=== PATIENT | male | born 1965 | race Caucasian/White ===

== ENCOUNTER 2024-09-14 21:25 | Emergency (ER) | payer MEDICAID, SELFPAY ==
[2024-09-14 21:26] VITALS: BP 153/101; PULSE 65; RESP 14; TEMP 37.1; O2SAT 98
[2024-09-14 21:40] LABS: Glucose Point of Care 164 mg/dL (70-110)
--- NOTE | 2024-09-14 21:41 | ED_ITS ---
Documented by User: BRENDA Lawrence 09/15/24 00:37 HPI - Altered Mental Status 2 General: Chief Complaint: Altered Mental Status Stated Complaint: AMS Time Seen by Provider: 09/14/24 21:38 History of Present Illness: 59-year-old male patient comes in today for complaints of somnolence. Patient was pulled over by [employer] and was noted to have an outstanding warrant and was taken to [facility] for processing. Patient has been somnolent and dozing off under the custody. Law enforcement brought patient in for evaluation and clearance. Patient denies any chronic medical problems. Patient reports tobacco use. Patient denies alcohol or marijuana use. Patient does endorse methamphetamine use. Patient is very somnolent and has to be awoken several times during interview. Patient denies any falls or injuries. Patient denies suicidal homicidal thought. Related Data Allergies Allergy/AdvReac Type Severity Reaction Status Date / Time Unable to Assess Allergy Unverified 09/14/24 21:36 Review of Systems 2 General: Reports: 10 or more systems reviewed and unremarkable except in HPI and below Physical Exam 2 Const: COMMON NORMALS: alert HENMT: COMMON NORMALS: normocephalic HEAD & SCALP: normocephalic Neck/C-Spine: COMMON NORMALS: full ROM Resp: COMMON NORMALS: normal respiratory effort Cardio: COMMON NORMALS: regular rate RATE: regular rate GI: AUSCULTATION: Yes normoactive bowel sounds PALPATION: No Tenderness to palpation present (GI) Extremity: COMMON NORMALS: normal to inspection Neuro: SENSORIUM/ORIENTATION: Yes alert and Yes somnolent Psych: COMMON NORMALS: denies homicidal ideation and denies suicidal ideation Skin: COMMON NORMALS: turgor normal GENERAL SKIN EXAM: turgor normal Course 2 Vital Signs: Vital signs: Vital Signs Temperature 98.7 F 09/14/24 21:26 Pulse Rate 67 09/14/24 23:31 Respiratory Rate 16 09/14/24 23:30 Blood Pressure 154/101 09/14/24 23:31 Pulse Oximetry 98 09/14/24 23:31 Oxygen Delivery Me thod Room Air 09/14/24 22:08 MDM - Altered Mental Status Medical Decision Making Patient was brought in by EMS and law enforcement for concerns of altered mental status. Patient was following sleep frequently and to the care of law enforcement. Patient appears nontoxic. Respirations are even. Patient continues to fall asleep during interview. Patient is easily be awoken with gentle/tactile stimuli. Heart rates regular. Lungs clear to auscultation. Vital signs are normal. Differential diagnosis substance intoxication, ACS unlikely, CVA unlikely, hypothyroidism, diabetes urinary tract infection, dehydration. Fingerstick glucose was 164. Chest x-ray was normal. CT of the head was unremarkable. CBC did note some mild anemia with a hemoglobin 9.9. CMP was unremarkable. Patient was positive for methamphetamines and marijuana. Urinalysis was unremarkable. Troponin was unremarkable. Patient denies any homicidal or suicidal thoughts. Patient slept most of his visit in the ER. Patient most likely has taken some methamphetamines and is coming off the methamphetamine or he has taken adulterated methamphetamine. Patient was able to be awakened and was released to law enforcement care. This patient was originally seen by BRENDA Sparks.? I agree with his history, evaluation, and treatment. Lab Data 09/14/24 21:54 09/14/24 21:54 Radiology Impressions Chest X-Ray 09/14/24 21:42 IMPRESSION: Minimal left basilar atelectasis. Head CT 09/14/24 21:42 IMPRESSION: No acute intracranial abnormality. Laboratory Results WBC 8.32 10^3/uL (3.29-11.43) 09/14/24 21:54 RBC 3.84 10^6/uL (3.85-5.65) L 09/14/24 21:54 Hgb 9.90 g/dL (11.27-16.99) L 09/14/24 21:54 Hct 32.9 % (37-53) L 09/14/24 21:54 MCV 85.7 fl (82-101) 09/14/24 21:54 MCH 25.8 pg (27-33) L 09/14/24 21:54 MCHC 30.1 g/dL (30-55) 09/14/24 21:54 RDW 18.5 % (12.1-15.1) H 09/14/24 21:54 Plt Count 439 10^3/cmm (157-399) H 09/14/24 21:54 MPV 8.6 fL (7.4-10.4) 09/14/24 21:54 Neut % (Auto) 88.2 % 09/14/24 21:54 Lymph % (Auto) 8.9 % 09/14/24 21:54 [place] % (Auto) 2.2 % 09/14/24 21:54 Eos % (Auto) 0.1 % 09/14/24 21:54 Baso % (Auto) 0.4 % 09/14/24 21:54 Neut # (Auto) 7.34 10^3/uL (1.8-7.7) 09/14/24 21:54 Lymph # (Auto) 0.7 10^3/uL (0.8-4.8) L 09/14/24 21:54 [place] # (Auto) 0.2 10^3/uL (0.2-0.9) 09/14/24 21:54 Eos # (Auto) 0.0 10^3/uL (0.0-0.8) 09/14/24 21:54 Baso # (Auto) 0.0 10^3/uL (0.0-0.1) 09/14/24 21:54 Nucleated RBC % (auto) 0 % 09/14/24 21:54 Nucleated RBCs # 0.0 /100WBC 09/14/24 21:54 Sodium 136 mmol/L (136-145) 09/14/24 21:54 Potassium 3.9 mmol/L (3.5-5.1) 09/14/24 21:54 Chloride 103 mmol/L (98-107) 09/14/24 21:54 Carbon Dioxide 22 mmol/L (22-29) 09/14/24 21:54 Anion Gap 14.9 (5-19) 09/14/24 21:54 BUN 10 mg/dL (6-20) 09/14/24 21:54 Creatinine 0.5 mg/dL (0.7-1.2) L 09/14/24 21:54 GFR Calculation 171.4 mL/min (90-130) H 09/14/24 21:54 Glucose 115 mg/dL (65-115) 09/14/24 21:54 POC Glucose 164 mg/dL (70-110) H 09/14/24 21:34 Calculated Osmolality 282 mOsm/kg (285-295) L 09/14/24 21:54 Calcium 8.5 mg/dL (8.5-10.5) 09/14/24 21:54 Total Bilirubin 0.3 mg/dL (0.15-1.2) 09/14/24 21:54 AST 37 U/L (0-40) 09/14/24 21:54 ALT 27 U/L (0-41) 09/14/24 21:54 Alkaline Phosphatase 86 U/L (40-130) 09/14/24 21:54 Troponin T Baseline 10 ng/L (0-15) 09/14/24 21:54 Total Protein 6.7 g/dL (6.6-8.7) 09/14/24 21:54 Albumin 4.2 g/dL (3.5-5.2) 09/14/24 21:54 Globulin 2.5 g/dL (1.3-4.6) 09/14/24 21:54 TSH 0.58 uIU/mL (0.27-4.20) 09/14/24 21:54 Urine Color Yellow (Yellow) 09/14/24 22:30 Urine Appearance Clear (CLEAR) 09/14/24 22:30 Urine pH 6.0 (5-7) 09/14/24 22:30 Ur Specific [place] 1.010 (1.005-1.030) 09/14/24 22:30 Urine Protein Negative (Negative) 09/14/24 22:30 Urine Glucose (UA) Negative (Normal) 09/14/24 22:30 Urine Ketones Negative (Negative) 09/14/24 22:30 Urine Blood Negative (Negative) 09/14/24 22:30 Urine Nitrate Negative (Negative) 09/14/24 22:30 Urine Bilirubin Negative (Negative) 09/14/24 22:30 Urine Urobilinogen 1.0 mg/dL (Negative) 09/14/24 22:30 Ur Leukocyte Esterase Negative (Negative) 09/14/24 22:30 Urine RBC 0-2 /hpf (0-2) 09/14/24 22:30 Urine WBC 0-5 /hpf (0-5) 09/14/24 22:30 Ur Squamous Epith Cells 0-5 /hpf (0-5) 09/14/24 22:30 Amorphous Sediment Not Reportable 09/14/24 22:30 Urine Bacteria None seen /hpf (NONE) 09/14/24 22:30 Hyaline Casts 0-4 /lpf H 09/14/24 22:30 Urine Opiates Screen Negative ng/mL (Negative) 09/14/24 22:30 Ur Barbiturates Screen Negative ng/mL (Negative) 09/14/24 22:30 Ur Phencyclidine Scrn Negative ng/mL (Negative) 09/14/24 22:30 Ur Amphetamines Screen Positive ng/mL (Negative) H 09/14/24 22:30 U Benzodiazepines Scrn Negative ng/mL (Negative) 09/14/24 22:30 Urine Cocaine Screen Negative ng/mL (Negative) 09/14/24 22:30 U Marijuana (THC) Screen Positive ng/mL (Negative) H 09/14/24 22:30 Ethyl Alcohol < 10 mg/dL (0-10) 09/14/24 21:54 EKG Data EKG 1: I personally reviewed and interpreted this EKG as follows: EKG interpretation date: 09/14/24 EKG interpretation time: 23:04 Prior EKG tracings: not available for review Interpretation: EKG shows a sinus rhythm with a regular rate at [address] elevation or ectopy otherwise is noted. No prior exam was available for comparison. Computer generated interpretation: Sinus rhythm. Voltage criteria for LVH. Abnormal EKG. Unconfirmed report. Discharge Plan Discharge Patient Disposition: Home Clinical Impression: Intoxication by drug Qualifiers: Complication of substance-induced condition: uncomplicated Qualified Code(s): F 19.920 - Other psychoactive substance use, unspecified with intoxication, uncomplicated Condition: Stable Discharge Orders: Discharge ED (Routine); Ordered 09/14/24 Ordered By: Jimbo Shelley Referrals: JULIANE [Other] Luc Venegas MD [Referring] - Patient Instructions: Altered Mental Status (ED) Activity Restrictions/Additional Instructions: Drink plenty of water and fluids. Activity as tolerated. Follow-up with primary care. Coding Level of Care Code ED User Interface Developer for Chg [employer]wd Documented by User: Pierre Garcia, DO 09/15/24 00:20 HPI - Altered Mental Status 2 General: Chief Complaint: Altered Mental Status Stated Complaint: AMS Time Seen by Provider: 09/14/24 21:38 Related Data Allergies Allergy/AdvReac Type Severity Reaction Status Date / Time Unable to Assess Allergy Unverified 09/14/24 21:36 Course 2 Vital Signs: Vital signs: Vital Signs Temperature 98.7 F 09/14/24 21:26 Pulse Rate 67 09/14/24 23:31 Respiratory Rate 16 09/14/24 23:30 Blood Pressure 154/101 09/14/24 23:31 Pulse Oximetry 98 09/14/24 23:31 Oxygen Delivery Me thod Room Air 09/14/24 22:08 MDM - Altered Mental Status Medical Decision Making Patient was brought in by EMS and law enforcement for concerns of altered mental status. Patient was following sleep frequently and to the care of law enforcement. Patient appears nontoxic. Respirations are even. Patient continues to fall asleep during interview. Patient is easily be awoken with gentle/tactile stimuli. Heart rates regular. Lungs clear to auscultation. Vital signs are normal. Differential diagnosis substance intoxication, ACS unlikely, CVA unlikely, hypothyroidism, diabetes urinary tract infection, dehydration. Fingerstick glucose was 164. Chest x-ray was normal. CT of the head was unremarkable. CBC did note some mild anemia with a hemoglobin 9.9. CMP was unremarkable. Patient was positive for methamphetamines and marijuana. Urinalysis was unremarkable. Troponin was unremarkable. Patient denies any homicidal or suicidal thoughts. Patient slept most of his visit in the ER. Patient most likely has taken some methamphetamines and is coming off the methamphetamine and patient or he has taken adulterated methamphetamine. This patient was originally seen by BRENDA Sparks.? I agree with his history, evaluation, and treatment. Lab Data 09/14/24 21:54 09/14/24 21:54 Radiology Impressions Chest X-Ray 09/14/24 21:42 IMPRESSION: Minimal left basilar atelectasis. Head CT 09/14/24 21:42 IMPRESSION: No acute intracranial abnormality. Laboratory Results WBC 8.32 10^3/uL (3.29-11.43) 09/14/24 21:54 RBC 3.84 10^6/uL (3.85-5.65) L 09/14/24 21:54 Hgb 9.90 g/dL (11.27-16.99) L 09/14/24 21:54 Hct 32.9 % (37-53) L 09/14/24 21:54 MCV 85.7 fl (82-101) 09/14/24 21:54 MCH 25.8 pg (27-33) L 09/14/24 21:54 MCHC 30.1 g/dL (30-55) 09/14/24 21:54 RDW 18.5 % (12.1-15.1) H 09/14/24 21:54 Plt Count 439 10^3/cmm (157-399) H 09/14/24 21:54 MPV 8.6 fL (7.4-10.4) 09/14/24 21:54 Neut % (Auto) 88.2 % 09/14/24 21:54 Lymph % (Auto) 8.9 % 09/14/24 21:54 [place] % (Auto) 2.2 % 09/14/24 21:54 Eos % (Auto) 0.1 % 09/14/24 21:54 Baso % (Auto) 0.4 % 09/14/24 21:54 Neut # (Auto) 7.34 10^3/uL (1.8-7.7) 09/14/24 21:54 Lymph # (Auto) 0.7 10^3/uL (0.8-4.8) L 09/14/24 21:54 [place] # (Auto) 0.2 10^3/uL (0.2-0.9) 09/14/24 21:54 Eos # (Auto) 0.0 10^3/uL (0.0-0.8) 09/14/24 21:54 Baso # (Auto) 0.0 10^3/uL (0.0-0.1) 09/14/24 21:54 Nucleated RBC % (auto) 0 % 09/14/24 21:54 Nucleated RBCs # 0.0 /100WBC 09/14/24 21:54 Sodium 136 mmol/L (136-145) 09/14/24 21:54 Potassium 3.9 mmol/L (3.5-5.1) 09/14/24 21:54 Chloride 103 mmol/L (98-107) 09/14/24 21:54 Carbon Dioxide 22 mmol/L (22-29) 09/14/24 21:54 Anion Gap 14.9 (5-19) 09/14/24 21:54 BUN 10 mg/dL (6-20) 09/14/24 21:54 Creatinine 0.5 mg/dL (0.7-1.2) L 09/14/24 21:54 GFR Calculation 171.4 mL/min (90-130) H 09/14/24 21:54 Glucose 115 mg/dL (65-115) 09/14/24 21:54 POC Glucose 164 mg/dL (70-110) H 09/14/24 21:34 Calculated Osmolality 282 mOsm/kg (285-295) L 09/14/24 21:54 Calcium 8.5 mg/dL (8.5-10.5) 09/14/24 21:54 Total Bilirubin 0.3 mg/dL (0.15-1.2) 09/14/24 21:54 AST 37 U/L (0-40) 09/14/24 21:54 ALT 27 U/L (0-41) 09/14/24 21:54 Alkaline Phosphatase 86 U/L (40-130) 09/14/24 21:54 Troponin T Baseline 10 ng/L (0-15) 09/14/24 21:54 Total Protein 6.7 g/dL (6.6-8.7) 09/14/24 21:54 Albumin 4.2 g/dL (3.5-5.2) 09/14/24 21:54 Globulin 2.5 g/dL (1.3-4.6) 09/14/24 21:54 TSH 0.58 uIU/mL (0.27-4.20) 09/14/24 21:54 Urine Color Yellow (Yellow) 09/14/24 22:30 Urine Appearance Clear (CLEAR) 09/14/24 22:30 Urine pH 6.0 (5-7) 09/14/24 22:30 Ur Specific [place] 1.010 (1.005-1.030) 09/14/24 22:30 Urine Protein Negative (Negative) 09/14/24 22:30 Urine Glucose (UA) Negative (Normal) 09/14/24 22:30 Urine Ketones Negative (Negative) 09/14/24 22:30 Urine Blood Negative (Negative) 09/14/24 22:30 Urine Nitrate Negative (Negative) 09/14/24 22:30 Urine Bilirubin Negative (Negative) 09/14/24 22:30 Urine Urobilinogen 1.0 mg/dL (Negative) 09/14/24 22:30 Ur Leukocyte Esterase Negative (Negative) 09/14/24 22:30 Urine RBC 0-2 /hpf (0-2) 09/14/24 22:30 Urine WBC 0-5 /hpf (0-5) 09/14/24 22:30 Ur Squamous Epith Cells 0-5 /hpf (0-5) 09/14/24 22:30 Amorphous Sediment Not Reportable 09/14/24 22:30 Urine Bacteria None seen /hpf (NONE) 09/14/24 22:30 Hyaline Casts 0-4 /lpf H 09/14/24 22:30 Urine Opiates Screen Negative ng/mL (Negative) 09/14/24 22:30 Ur Barbiturates Screen Negative ng/mL (Negative) 09/14/24 22:30 Ur Phencyclidine Scrn Negative ng/mL (Negative) 09/14/24 22:30 Ur Amphetamines Screen Positive ng/mL (Negative) H 09/14/24 22:30 U Benzodiazepines Scrn Negative ng/mL (Negative) 09/14/24 22:30 Urine Cocaine Screen Negative ng/mL (Negative) 09/14/24 22:30 U Marijuana (THC) Screen Positive ng/mL (Negative) H 09/14/24 22:30 Ethyl Alcohol < 10 mg/dL (0-10) 09/14/24 21:54 All radiology interpretation(s) finalized by discharge Discharge Plan Discharge Patient Disposition: Home Clinical Impression: Intoxication by drug Qualifiers: Complication of substance-induced condition: uncomplicated Qualified Code(s): F 19.920 - Other psychoactive substance use, unspecified with intoxication, uncomplicated Condition: Stable Discharge Orders: Discharge ED (Routine); Ordered 09/14/24 Ordered By: Jimbo Shelley Referrals: JULIANE [Other] Luc Venegas MD [Referring] - Patient Instructions: Altered Mental Status (ED) Activity Restrictions/Additional Instructions: Drink plenty of water and fluids. Activity as tolerated. Follow-up with primary care. Coding Level of Care Code ED User Interface Developer for Jeffery Paul
--- NOTE | 2024-09-14 21:42 | XRR_ITS ---
PROCEDURE INFORMATION: Exam: XR Chest Exam date and time: 09/14/2024 10:11 PM Age: 59 years old Clinical indication: Patient HX: Arrival via local pd for AMS. Patient became altered upon booking for arrest at [facility]. Patient unrepsonsive and non verbal upon exam. TECHNIQUE: Imaging protocol: Radiologic exam of the chest. Views: 1 view. COMPARISON: No relevant prior studies available. FINDINGS: Lungs: Minimal left basilar atelectasis. Pleural spaces: Unremarkable. No pleural effusion. No pneumothorax. Heart/Mediastinum: Unremarkable. No cardiomegaly. Bones/joints: Unremarkable. Other findings: 3 mm nodule overlying the right lung base XR/XR chest 1V portable [id number] IMPRESSION: Minimal left basilar atelectasis.
--- NOTE | 2024-09-14 21:42 | CTR_ITS ---
PROCEDURE INFORMATION: Exam: CT Head Without Contrast Exam date and time: 09/14/2024 11:18 PM Age: 59 years old Clinical indication: Altered mental status/memory loss; Patient HX: Arrival via local pd for AMS. Patient became altered upon booking for arrest at [facility]. Patient unrepsonsive and non verbal upon exam. TECHNIQUE: Imaging protocol: Computed tomography of the head without contrast. Radiation optimization: All CT scans at this facility use at least one of these dose optimization techniques: automated exposure control; mA and/or kV adjustment per patient size (includes targeted exams where dose is matched to clinical indication); or iterative reconstruction. COMPARISON: No relevant prior studies available. RADIATION DOSE METRICS: Total DLP (mGy-cm): 1102.08 FINDINGS: Brain: Normal. No hemorrhage, mass effect or midline shift. Cerebral ventricles: Ventricles are normal in size and position. Paranasal sinuses: Visualized sinuses are unremarkable. No fluid levels. Mastoid air cells: Visualized mastoid air cells are well aerated. Bones: Unremarkable. No acute fracture. Soft tissues: Unremarkable. CT/CT head wo con* [id number] IMPRESSION: No acute intracranial abnormality.
[2024-09-14 22:00] LABS: Basophils % 0.4 %; Eosinophils % 0.1 %; Hematocrit 32.9 % (37-53); Lymphocytes # 0.7 10^3/uL (0.8-4.8); Lymphocytes % 8.9 %; Mean Corpuscular HGB Conc 30.1 g/dL (30-55); Mean Corpuscular Hemoglobin 25.8 pg (27-33); Mean Corpuscular Volume 85.7 fl (82-101); Mean Platelet Volume 8.6 fL (7.4-10.4); Monocytes # 0.2 10^3/uL (0.2-0.9); Monocytes % 2.2 %; Neutrophils # 7.34 10^3/uL (1.8-7.7); Neutrophils % 88.2 %; Nucleated Red Blood Cells % 0 %; Platelet Count 439 10^3/cmm (157-399); Red Blood Count 3.84 10^6/uL (3.85-5.65); Red Cell Distribution Width 18.5 % (12.1-15.1); White Blood Count 8.32 10^3/uL (3.29-11.43)
[2024-09-14 22:08] VITALS: BP 152/104; PULSE 73; RESP 14; O2SAT 96
[2024-09-14 22:17] LABS: Troponin(5th) Baseline 10 ng/L (0-15)
[2024-09-14 22:35] LABS: Alanine Aminotransferase 27 U/L (0-41); Albumin Level 4.2 g/dL (3.5-5.2); Alcohol Level < 10 mg/dL (0-10); Alkaline Phosphatase 86 U/L (40-130); Anion Gap 14.9 (5-19); Aspartate Amino Transferase 37 U/L (0-40); Blood Urea Nitrogen 10 mg/dL (6-20); Calcium 8.5 mg/dL (8.5-10.5); Carbon Dioxide 22 mmol/L (22-29); Chloride 103 mmol/L (98-107); Globulin 2.5 g/dL (1.3-4.6); Glomerular Filtration Rate 171.4 mL/min (90-130); Glucose 115 mg/dL (65-115); Osmolality Calculated 282 mOsm/kg (285-295); Potassium 3.9 mmol/L (3.5-5.1); Sodium 136 mmol/L (136-145); Thyroid Stimulating Hormone 0.58 uIU/mL (0.27-4.20); Total Bilirubin 0.3 mg/dL (0.15-1.2); Total Protein 6.7 g/dL (6.6-8.7)
[2024-09-14 22:40] LABS: Bilirubin Urine Negative (Negative); Blood Urine Negative (Negative); Glucose Urine UA Negative (Normal); Ketones Urine Negative (Negative); Leukocyte Esterase Urine Negative (Negative); Nitrate Urine Negative (Negative); Protein Urine Negative (Negative); Urine Appearance Clear (CLEAR); Urine Color Yellow (Yellow)
[2024-09-14 22:44] LABS: Add Urine Microscopic? YES; Bacteria Urine None Seen /hpf; Hyaline Casts Urine 0-4 /lpf; RBC Urine 0-2 /hpf (0-2); Squamous Epithelial Cell Urine 0-5 /hpf (0-5); WBC Urine 0-5 /hpf (0-5)
[2024-09-14 22:47] LABS: Amphetamines Screen Urine Positive (Negative); Barbiturates Screen Urine Negative (Negative); Benzodiazepines Screen Urine Negative (Negative); Cocaine Screen Urine Negative (Negative); Opiate Screen Urine Negative (Negative); PCP Screen Urine Negative (Negative); THC Screen Urine Positive (Negative)
[2024-09-14 22:59] LABS: UA Slide Review UA Slide Review Perf
--- NOTE | 2024-09-14 23:00 | ECG_ITS ---
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 Measurements Intervals [place] Rate: 70 P: 55 [place]: 170 QRS: -11 QRSD: 88 T: 20 QT: 415 QTc: 449 Interpretive Statements SINUS RHYTHM VOLTAGE CRITERIA FOR LVH [MEETS CRITERIA IN ONE OF: R(aVL), S(V1), R(V5), R(V5/V6)+S(V1)] No previous ECG available for comparison Electronically Signed On 09-18-2024 21:23:18 GOLF PROFESSIONAL by Debbie Espitia M.D. [email or web address]
[2024-09-14 23:30] VITALS: BP 178/111; PULSE 64; RESP 16; O2SAT 99
[2024-09-14 23:31] VITALS: BP 154/101; PULSE 67; O2SAT 98
== END 2024-09-14 23:34 | disposition home or self-care (01) ==
PROVIDERS: Emergency Provider Nurse Practitioner Family
DX: F19.920 Other psychoactive substance use, unspecified with intoxication, uncomplicated (principal)
CPT/HCPCS: 36415; 36416; 70450; 71045; 80053; 80306; 80307; 81001; 82962; 84443; 84484; 85025; 93005; 99285